=== PATIENT | male | born 1995 | race Caucasian/White ===

== ENCOUNTER 2019-02-17 21:59 | Emergency (ER) | payer OTHER ==
[2019-02-17 22:12] VITALS: BP 106/55
--- NOTE | 2019-02-17 23:25 | ER Document Report ---
ED Medical Screen (RME) - General Chief Complaint: Abscess Stated Complaint: LEG PAIN Time Seen by Provider: 02/17/19 23:14 Primary Care Provider: PAPO FOUNTAIN MD [Primary Care Provider] - Follow up as needed Mode of Arrival: Ambulatory Information source: Patient Notes: 23-year-old male presented to ED for abscess to the front of left marroquin. He states Sunday of last week he felt a prick to the left marroquin. He states that it would became gradually painful and now it is red and swollen with a black spot on it. He went to medical today they told him he did have an opening to return tomorrow to try to get worked in. He states now his bone is aching and his was worried that he had some there was contagious she could get so she insisted that he come to the emergency room. He states he cannot wait all night because he has to be at work at 5:00 in the morning. I have informed him that is probably an abscess needs to be I&D and started on antibiotics. He states he will go to his [facility] first thing in the morning to get seen. Patient denies any past medical or surgical history he states he is going to go home and be seen tomorrow. TRAVEL OUTSIDE OF THE [place] IN LAST 30 DAYS: No - Related Data Allergies/Adverse Reactions: No Known Allergies Allergy (Unverified 02/17/19 22:11) Past Medical History - Immunizations Immunizations up to date: Yes Hx Diphtheria, Pertussis, Tetanus Vaccination: Yes Physical Exam - Vital signs Vitals: Temp Pulse Resp BP Pulse Ox 98.1 F 67 18 106/55 L 98 02/17/19 22:11 02/17/19 22:11 02/17/19 22:11 02/17/19 22:11 02/17/19 22:11 Course - Vital Signs Vital signs: Temp Pulse Resp BP Pulse Ox 98.1 F 67 18 106/55 L 98 02/17/19 22:11 02/17/19 22:11 02/17/19 22:11 02/17/19 22:11 02/17/19 22:11 Doctor's Discharge - Discharge Referrals: PAPO FOUNTAIN MD [Primary Care Provider] - Follow up as needed
== END 2019-02-17 23:41 | disposition left against medical advice (07) ==
LOC: ER 21:59
DX: Z04.89 Encounter for examination and observation for other specified reasons (principal); Z53.29 Procedure and treatment not carried out because of patient's decision for other reasons
CPT/HCPCS: 99281